=== PATIENT | female | born 1945 | race Two or more races ===

== ENCOUNTER → 2025-05-17 | Emergency (ER) | payer OTHER ==
[~2025-05-17] VITALS: Ht 149.9 cm; Wt 60.3 kg
[~2025-05-17] MED LIST: ABILIFY5 MG; ACETAMINOPHEN 500 MG GEL..CAP PO ONE; ACID REDUCER20 M1; ATENOLOL50 MG PO; DEXAMETHASONE SODIUM PHOSPHATE 4 MG/ML VIAL IM STA; DEXAMETHASONE SODIUM PHOSPHATE 4 MG/ML VIAL ONE; DOLOGESIC-DF 51 EACH PO; HYDROCHLOROTHIA25 MG; LIPITOR20 MG; RESTORIL15 M1; TOPROL XL25 M1; ZOLOFT100 MG
== END | disposition home or self-care (01) ==
LOC: ER 07:10
DX: G89.11 Acute pain due to trauma (principal); M25.561 Pain in right knee; I10 Essential (primary) hypertension; Z88.6 Allergy status to analgesic agent